=== PATIENT | female | born 1985 | race Two or more races ===

== ENCOUNTER → 2024-05-16 | Outpatient (CLI) | payer MEDICAID, SELFPAY ==
--- NOTE | 2024-05-16 09:30 | XR_ITS ---
Examination: Ultrasound soft tissue neck TECHNIQUE: Sonographic images soft tissue neck Exam date and time: May 16, 2024 1039 hours INDICATIONS: Palpable lump underneath the chin 2 years. FINDINGS: Circumscribed submental lymph node 12 x 4 x 12 mm IMPRESSION: Circumscribed submental lymph node 12 x 4 x 12 mm This is most safely biopsied under CT guidance as clinically warranted
== END | disposition home or self-care (01) ==
LOC: SDIM 09:54 → SIRX 10:35
PROVIDERS: PCP Nurse Practitioner Family; Referring Provider Nurse Practitioner Family; Visit Provider Nurse Practitioner Family
DX: R22.9 Localized swelling, mass and lump, unspecified (principal); Z53.8 Procedure and treatment not carried out for other reasons
CPT/HCPCS: 76536